=== PATIENT | female | born 1950 | race Caucasian/White ===

== ENCOUNTER → 2017-04-02 | Outpatient (CLI) | payer MEDICARE, BC | LOC: MAMO 14:15 | DX: Z12.31 Encounter for screening mammogram for malignant neoplasm of breast (principal) | CPT/HCPCS: G0202 ==

== ENCOUNTER → 2020-11-29 | Outpatient (CLI) | payer MEDICARE, BC ==
[~2020-11-29] MED LIST: CLEOCIN HCL300 MG PO; NORCO 5-325 TA1 EACH PO
== END ==
LOC: MAMO 13:30 → US 14:00
DX: N64.53 Retraction of nipple (principal); Z78.0 Asymptomatic menopausal state; Z95.0 Presence of cardiac pacemaker
CPT/HCPCS: 76641-LT; 77066; G0279

== ENCOUNTER → 2022-06-13 | Outpatient (CLI) | payer MEDICARE, BC | LOC: MAMO 06-04 09:00 | DX: Z12.31 Encounter for screening mammogram for malignant neoplasm of breast (principal) | CPT/HCPCS: 77063; 77067 ==